=== PATIENT | male | born 1990 | race Caucasian/White ===

== ENCOUNTER 2021-08-15 20:37 | Emergency (ER) | payer BC, OTHER ==
[2021-08-15] MEDS ORDERED: LORazepam 2 MG/ML SDV IVPUSH ONE (21:02)
[2021-08-15 21:32] LABS: BLOOD UREA NITROGEN,BUN 20 mg/dL (7.0-18.0); CARBON DIOXIDE,CO2 23.2 mmol/L (21.0-32.0); CHLORIDE,CL 100 mmol/L (98-107); GLUCOSE RANDOM 120 mg/dL (74-106); POTASSIUM,K 3.6 mmol/L (3.5-5.1); SODIUM,NA 139 mmol/L (136-148)
[2021-08-15] MEDS ORDERED: Iopamidol 755 MG/ML 500 ML Multipack Bottle IVPUSH STA (23:10)
[2021-08-15] MEDS ORDERED: Morphine 4 MG/ML VIAL IVPUSH ONE (23:22)
--- NOTE | 2021-08-15 23:42 | CT ---
Indication: Abdominal pain, history of stage IV gastrointestinal cancer Technique: Contrast enhanced axial CT imaging through the abdomen and pelvis. 100 mL Isovue 370 contrast agent was administered intravenously. Sagittal and coronal reconstructions are provided. Comparison: None Findings: Metallic density in the posterior right hepatic lobe presumably represents a small embolization coil. Adjacent subcentimeter hypoattenuating focus is too small to characterize. Remainder of the liver is unremarkable. No abnormalities are demonstrated relating to the gallbladder, spleen, pancreas, adrenal glands, and kidneys. The portal vein is patent. The abdominal aorta is normal in caliber. No lymphadenopathy is identified in the abdomen or pelvis. The urinary bladder is unremarkable. The stomach and duodenum are unremarkable. There is no small bowel wall thickening or abnormal distention. Surgical anastomoses are noted in the left lower quadrant small bowel, at the ileocecal junction, and in the sigmoid colon. There is no colonic wall thickening or mesenteric edema. There is a well corticated lucent lesion in the L4 vertebral body measuring 2 x 1 cm, favored to be of benign nature. The osseous structures are otherwise unremarkable. The included lung bases are clear. Impression: No acute abnormality demonstrated in the abdomen and pelvis. Surgical changes noted, as above. Please note that all CT scans at this facility use dose modulation, iterative reconstruction, and/or weight-based dosing when appropriate to reduce radiation dose to as low as reasonably achievable. Dictated by Pamela Quevedo MD @ 08/15/2021 11:40:12 PM (Electronically Signed)
--- NOTE | 2021-08-16 01:11 | EDM.PDOC ---
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 The patient states that approximately 2 years ago he was diagnosed with a GI stromal tumor and underwent multiple surgeries. He states that he was supposed to be on Gleevec however there has been an insurance issue when he has not had it for 1 month. He states that starting earlier today he has been experiencing extreme pain which he describes as like air building up in his periumbilical region. He rates his pain as 10 out of 10. He denies any exacerbating or relieving factors. He denies any melena, hematochezia, vomiting, hematemesis or bilious emesis. He states that he does have some blood in his urine but denies any other symptoms. He states that last time he had blood in his urine there was a tumor that was invading his bladder wall so he was concerned. He has not yet tried any pain medication. REVIEW OF SYSTEMS: Constitutional: Denies fever, chills. Eyes: Denies eye pain Ears, Nose, Mouth, & Throat: Denies earache Cardiovascular: Denies chest pain Respiratory: Denies shortness of breath Gastrointestinal: Positive for abdominal pain. Denies vomiting, diarrhea, higinio jonah, hematemesis, bilious emesis Genitourinary: Positive for hematuria. Skin:Denies a rash MSK: Denies joint pain Neurological: Denies blurred vision Psychiatric: Denies depression PAST MEDICAL HISTORY: As per history of present illness and as reviewed below otherwise noncontributory. SURGICAL HISTORY: As per history of present illness and as reviewed below otherwise noncontributory. SOCIAL HISTORY: As per history of present illness and as reviewed below otherwise noncontributory. FAMILY HISTORY: As per history of present illness and as reviewed below otherwise noncontributory. EXAMINATION OF ORGAN SYSTEMS/BODY AREAS: Constitutional: Blood pressure is 107/80, heart rate 108, respiratory rate 20 with an oxygen saturation 87% on room air. Temperature 36.4 General: Young man who does not appear to be in acute distress Psychiatric: Appropriate mood and affect. Eyes: No scleral icterus or conjunctival erythema ENMT: Moist mucous membranes. No pharyngeal erythema Cardiovascular: Regular, rate, and rhythm. No gallops, murmurs, or rubs. Bilateral upper extremity pulses symmetric and intact. No peripheral edema. No JVD. Respiratory: Lungs clear to auscultation bilaterally. No wheezes, rales, or rhonchi. Gastrointestinal: Soft, diffusely tender to palpation, nondistended. No rebound or guarding. No evidence of any masses palpated. Normoactive bowel sounds Genitourinary: No suprapubic tenderness no CVA tenderness. Musculoskeletal: Normal range of motion. Skin: No lesions or abrasions. Neurological: Alert, GCS 15 MEDICAL DECISION MAKING AND COURSE IN THE ED WITH INTERPRETATION/REVIEW OF DIAGNOSTIC STUDIES: This is a 31-year-old and with a past medical history of prior GI stromal tumor who is post to be on Gleevec who comes to the emergency department with diffuse abdominal pain who is mildly tachycardic but overall appears well with reported hematuria. At this time will obtain a urinalysis. Given his history obtain CBC, CMP and obtain a CT abdomen pelvis for further evaluation. We will provide the patient with 4 mg of IV morphine for pain relief. The patient does appear to be mildly anxious therefore we will provide 1 mg of IV lorazepam. The patient was able to void and the urine was pink in color but not se hematuria. Post void residual was 0. Laboratory: CBC reveals a leukocytosis to 16 otherwise unremarkable. This is essentially unchanged from March 07, 2019. CMP reveals elevated BUN at 20 and a creatinine of 1.4, hyperglycemia 120 and elevated AST of 52 otherwise unremarkable. Urinalysis reveals hematuria otherwise unremarkable. The radiological images were viewed by myself along with reading the report from the radiologist. CT abdomen pelvis with contrast does not reveal any acute intra-abdominal pathology. At this time I did discuss the results with the patient. The patient's pain had improved at this point. I did encourage the patient to follow-up with his oncologist given the current hematuria and discussed that if he had any worsening symptoms he should return to the emergency department. The patient was amenable to discharge at this time and had no further questions DISPOSITION: The patient was discharged home in stable condition. The patient will follow up with his oncologist in 3 to 5 days CONDITION: Fair PROCEDURES: None FINAL IMPRESSION(S)/DIAGNOSES: 1. Acute abdominal pain 2. Acute hematuria Bao Gonzales M.D. Abdomen Pain Score (Numeric/FACES): 9 - Related Data Allergies Allergy/AdvReac Type Severity Reaction Status Date / Time No Known Allergies Allergy Verified 08/15/21 20:49 Home Meds: Home Meds . [No Known Home Meds] 08/15/21 [History] Social & Family History - Tobacco Use Second Hand Smoke Exposure: No - Caffeine Use Caffeine Use: Reports: None - Recreational Drug Use Recreational Drug Use: No ED ROS GENERAL - Review of Systems Review Of Systems: See Below ED EXAM, GENERAL - Physical Exam Exam: See Below Course - Vital Signs Last Recorded V/S: Last Vital Signs Temp 36.4 C 08/15/21 20:44 Pulse 68 08/16/21 01:11 Resp 18 08/16/21 01:11 BP 114/56 L 08/16/21 01:11 Pulse Ox 98 08/16/21 01:11 - Orders/Labs/Meds Labs: Laboratory Tests 08/15/21 08/15/21 08/15/21 Range/Units 21:06 21:06 23:49 WBC 16.00 H (4.0-11.0) K/uL RBC 4.05 L (4.50-5.90) M/uL Hgb 13.2 (13.0-17.0) g/dL Hct 38.0 (38.0-50.0) % MCV 93.8 (80.0-98.0) fL MCH 32.6 H (27.0-32.0) pg MCHC 34.7 (31.0-37.0) g/dL RDW Std Deviation 46.0 (28.0-62.0) fl RDW Coeff of Mihir 13 (11.0-15.0) % Plt Count 298 (150-400) K/uL MPV 9.50 (7.40-12.00) fL Neut % (Auto) 66.4 (48.0-80.0) % Lymph % (Auto) 22.8 (16.0-40.0) % [place] % (Auto) 9.5 (0.0-15.0) % Eos % (Auto) 1.2 (0.0-7.0) % Baso % (Auto) 0.1 (0.0-1.5) % Neut # (Auto) 10.6 H (1.4-5.7) K/uL Lymph # (Auto) 3.7 H (0.6-2.4) K/uL [place] # (Auto) 1.5 H (0.0-0.8) K/uL Eos # (Auto) 0.2 (0.0-0.7) K/uL Baso # (Auto) 0.0 (0.0-0.1) K/uL Nucleated RBC % 0.0 /100WBC Nucleated RBCs # 0 K/uL Sodium 139 (136-148) mmol/L Potassium 3.6 (3.5-5.1) mmol/L Chloride 100 (98-107) mmol/L Carbon Dioxide 23.2 (21.0-32.0) mmol/L BUN 20 H (7.0-18.0) mg/dL Creatinine 1.4 H (0.8-1.3) mg/dL Est Cr Clr Drug Dosing TNP Estimated GFR (MDRD) 59.1 ml/min Glucose 120 H (74-106) mg/dL Calcium 9.0 (8.5-10.1) mg/dL Total Bilirubin 0.9 (0.2-1.0) mg/dL AST 52 H (15-37) IU/L ALT 36 (14-63) IU/L Alkaline Phosphatase 72 (46-116) U/L Total Protein 7.9 (6.4-8.2) g/dL Albumin 4.3 (3.4-5.0) g/dL Globulin 3.6 (2.6-4.0) g/dL Albumin/Globulin Ratio 1.2 (0.9-1.6) Urine Color YELLOW Urine Appearance HAZY Urine pH 8.5 H (5.0-8.0) Ur Specific [place] 1.010 (1.001-1.035) Urine Protein TRACE H (NEGATIVE) mg/dL Urine Glucose (UA) NEGATIVE (NEGATIVE) mg/dL Urine Ketones >=80 (NEGATIVE) mg/dL Urine Occult Blood LARGE H (NEGATIVE) Urine Nitrite NEGATIVE (NEGATIVE) Urine Bilirubin SMALL H (NEGATIVE) Urine Urobilinogen 0.2 (<2.0) EU/dL Ur Leukocyte Esterase NEGATIVE (NEGATIVE) Urine RBC 20-30 (0-2/HPF) Urine WBC 0-3 (0-5/HPF) Ur Epithelial Cells RARE (NONE-FEW) Urine Bacteria FEW (NEGATIVE) Meds: Medications Discontinued Medications Generic Name Dose Route Start Last Admin Trade Name Tania PRN Reason Stop Dose Admin Iopamidol 100 ml 08/15/21 23:10 08/15/21 23:11 Iopamidol 755 Mg/Ml 500 Ml Multipack Bottle IVPUSH 08/15/21 23:11 100 ml ONETIME STA Administration Lorazepam 1 mg 08/15/21 21:02 08/15/21 21:07 Lorazepam 2 Mg/Ml Sdv IVPUSH 08/15/21 21:03 1 mg ONETIME ONE Administration Morphine Sulfate 4 mg 08/15/21 23:22 08/15/21 23:29 Morphine 4 Mg/Ml Vial IVPUSH 08/15/21 23:23 4 mg ONETIME ONE Administration Departure - Departure Time of Disposition: 01:11 Disposition: Home, Self-Care 01 Condition: Fair Clinical Impression: Abdominal pain, Hematuria - Discharge Information *PRESCRIPTION DRUG MONITORING PROGRAM REVIEWED*: No *COPY OF PRESCRIPTION DRUG MONITORING REPORT IN PATIENT PRIYANKA: No Instructions: Abdominal Pain, Adult, [id number], Hematuria, Adult Referrals: PCP,Not In Area [Primary Care Provider] - Forms: ED Department Discharge Additional Instructions: You were evaluated today on an emergent basis. At this time all of your imaging did not reveal any changes or acute abnormalities of your abdomen. Your labs are also within normal limits and your vitals also continue to remain normal. At this time other than having some small amount of blood in your urine no other cause could be identified for your abdominal pain. Given your history of the stromal tumor I recommend you follow-up in [facility] with your oncologist for reevaluation. If you have any worsening pain, fevers, blood in your stool I would like you to return to the emergency department. [facility] - [facility] [address] [place] [id number] [address] The patient is informed of any results of their evaluation and diagnostic workup and all questions are answered. They are given discharge instructions and return precautions. The patient is stable for discharge. The patient states they understand and agree with the plan and that they will return if their symptoms get worse or if they have any new concerns. The following information is given to patients seen in the emergency department who are being discharged to home. This information is to outline your options for follow-up care. We provide all patients seen in our emergency department with a follow-up referral. The need for follow-up, as well as the timing and circumstances, are variable depending upon the specifics of your emergency department visit. If you don't have a primary care physician on staff, we will provide you with a referral. We always advise you to contact your personal physician following an emergency department visit to inform them of the circumstance of the visit and for follow-up with them and/or the need for any referrals to a consulting specialist. The emergency department will also refer you to a specialist when appropriate. This referral assures that you have the opportunity for follow-up care with a specialist. All of these measure are taken in an effort to provide you with optimal care, which includes your follow-up. Under all circumstances we always encourage you to contact your private physician who remains a resource for coordinating your care. When calling for follow-up care, please make the office aware that this follow-up is from your recent emergency room visit. If for any reason you are refused follow-up, please contact the [facility] Emergency Department at and asked to speak to the emergency department charge nurse. Sepsis Event Note (ED) - Evaluation Sepsis Screening Result: No Definite Risk
== END 2021-08-16 01:25 | disposition home or self-care (01) ==
LOC: MW.ED 20:37
DX: R10.84 Generalized abdominal pain (principal); R31.9 Hematuria, unspecified; Z98.890 Other specified postprocedural states
CPT/HCPCS: 36415; 51798; 74177; 80053; 81001; 85025; 96374; 96375; 99284; J2060; J2270; Q9967

== ENCOUNTER 2023-10-24 08:08 | Emergency (ER) | payer OTHER ==
[2023-10-24] MEDS: Dexamethasone 10 MG/ML SDV PO ONE (08:25)
== END 2023-10-24 08:34 | disposition home or self-care (01) ==
LOC: MW.ED 08:08
DX: J02.9 Acute pharyngitis, unspecified (principal)
CPT/HCPCS: 99282; J8540; 99283

== ENCOUNTER 2023-11-26 16:16 | Emergency (ER) | payer OTHER ==
[2023-11-26] MEDS: Sodium Chloride 0.9% 2.5 ML Syringe FLUSH PRN (17:06)
[2023-11-26] MEDS: Sodium Chloride 0.9% 10 ML Syringe FLUSH PRN (17:06)
[2023-11-26 17:10] LABS: BASOPHILS ABSOLUTE AUTO 0.03 K/uL (0.00-0.20); BASOPHILS PERCENT AUTO 0.3 % (0.0-1.0); EOSINOPHILS ABSOLUTE AUTO 0.39 K/uL (0.00-0.45); EOSINOPHILS PERCENT AUTO 3.5 % (0.0-6.0); HEMATOCRIT 40.7 % (42.0-52.0); IMMATURE GRAN ABSOLUTE AUTO 0.02 K/uL (0.00-0.05); IMMATURE GRAN PERCENT AUTO 0.2 % (0.0-0.4); LYMPHOCYTES ABSOLUTE AUTO 2.03 K/uL (1.00-4.80); LYMPHOCYTES PERCENT AUTO 18.4 % (24.0-44.0); MEAN CORPUSCULAR HEMOGLOBIN 32.3 pg (28.0-32.0); MEAN CORPUSCULAR HGB CONC 34.4 g/dL (32.0-36.0); MEAN PLATELET VOLUME 9.1 fL (9.4-12.4); MONOCYTES ABSOLUTE AUTO 0.74 K/uL (0.00-0.80); MONOCYTES PERCENT AUTO 6.7 % (0.0-8.0); NEUTROPHILS ABSOLUTE AUTO 7.82 K/uL (1.80-7.70); NEUTROPHILS PERCENT AUTO 70.9 % (41.0-71.0); PLATELET COUNT,PLT 251 K/uL (150-400); RED BLOOD CELL COUNT 4.33 M/uL (4.52-5.90); WHITE BLOOD CELL COUNT,WBC 11.03 K/uL (3.9-11.3)
[2023-11-26] MEDS: Dexamethasone 10 MG/ML SDV IV STA (17:22)
[2023-11-26 17:41] LABS: A/G RATIO 1.1 (0.9-1.6); ALBUMIN 4.4 g/dL (3.4-5.0); BILIRUBIN TOTAL 0.8 mg/dL (0.2-1.0); CALCIUM 9.5 mg/dL (8.5-10.1); CARBON DIOXIDE,CO2 26.5 mmol/L (21.0-32.0); CREATININE 1.3 mg/dL (0.8-1.3); EST CRCL DRUG DOSING (CG) 93.97 mL/min; POTASSIUM,K 3.7 mmol/L (3.5-5.1); PROTEIN TOTAL,TP 8.4 g/dL (6.4-8.2)
[2023-11-26] MEDS: Iopamidol 755 MG/ML 500 ML Multipack Bottle IVPUSH STA (17:55)
== END 2023-11-26 19:41 | disposition home or self-care (01) ==
LOC: MW.ED 16:16
DX: J03.90 Acute tonsillitis, unspecified (principal); Z75.8 Other problems related to medical facilities and other health care
CPT/HCPCS: 36415; 70491; 70491-26; 80053; 85025; 86308; 87651-QW; 96374; 99284; 99284-25; J1100; J3490; Q9967